=== PATIENT | male | born 1955 | race Caucasian/White ===

== ENCOUNTER 2019-03-06 11:26 | Emergency (ER) | payer OTHER, SELFPAY ==
[2019-03-06 11:25] VITALS: BP 148/77; PULSE 78; RESP 14; TEMP 36.5; O2SAT 94; BMI 32.1
--- NOTE | 2019-03-06 11:32 | ED_ITS ---
HPI - Head Injury General Chief complaint: Fall Stated complaint: GLF Time Seen by Provider: 03/06/19 11:26 Source: patient and EMS Mode of arrival: EMS Limitations: no limitations History of Present Illness HPI Narrative: Patient was brought to the emergency department by EMS after falling backward while pushing a vilma uphill and hitting the back of his head on cement. Patient did not lose consciousness, but was progressively amnestic for the medics. Patient states he is nauseated and has a headache, but denies neck pain. No visual changes. Patient was able to walk after the fall, and medics had to convince him to come to the emergency department. Patient denies any extremity pain. No chest pain or shortness breath. No rib pain. No other complaints at this time. Patient was not ill prior to the fall. Related Data Home Medications Medication Instructions Recorded Confirmed Supplements 1 dose PO DIRECTED 03/06/19 03/06/19 Allergies Allergy/AdvReac Type Severity Reaction Status Date / Time codeine Allergy Verified 03/06/19 11:32 Review of Systems Constitutional Denies chills, Denies fever(s), Denies lethargy and Denies weakness Eyes Denies change in vision, Denies eye discharge, Denies irritation and Denies loss of vision ENT Ears, Nose, Mouth, and Throat: Denies change in voice, Denies neck pain and Denies sore throat Cardiovascular Denies chest pain, Denies irregular heart rhythm, Denies lightheadedness, Denies palpitations, Denies dyspnea, Denies dyspnea on exertion and Denies orthopnea Respiratory Denies cough, Denies dyspnea, Denies dyspnea on exertion and Denies wheezing Gastrointestinal Gastrointestinal: Denies abdominal pain, Denies change in bowel habits, Denies diarrhea, Reports nausea and Denies vomiting Comments: Nausea Genitourinary Denies hematuria, Denies flank pain, Denies urinary incontinence and Denies ur inary urgency Musculoskeletal Denies neck pain Integumentary/Breasts Denies pruritus, Denies erythema, Denies rash and Denies wounds Neurologic Denies confusion, Denies loss of vision and Denies weakness Comments: Headache Psychiatric Denies anxiety, Denies confusion, Denies depression, Denies homicidal ideation and Denies suicidal ideation Endocrine Denies palpitations Hematologic/Lymphatic Denies easy bruising Allergic/Immunologic Denies wheezing [facility] Medical History (Updated 03/06/19 @ 15:45 by Areli Tang MD) Healthy adult (Acute) Surgical History No pertinent past surgical history (Acute) Social History Smoking Status: Current every day smoker Social History Smoking Status: Current every day smoker Exam Initial Vital Signs Initial Vital Signs: Vital Signs Temperature 97.7 F 03/06/19 11:25 Pulse Rate 78 03/06/19 11:25 Respiratory Rate 14 03/06/19 11:25 Blood Pressure 148/77 H 03/06/19 11:25 Pulse Oximetry 94 03/06/19 11:25 Const General: cooperative and well developed Nutritional Appearance: well nourished Orientation: alert, awake, oriented x3 and not confused Other: Patient is alert, but appears moderately uncomfortable. HENMT Head: normocephalic and atraumatic Ears: external ears normal Nose: external nose normal and No nasal discharge Face and sinus: face symmetric and No dry mucous membranes Mouth: oral mucosae normal and moist mucous membranes Teeth and gingiva: dentition normal Eyes General: appearance normal, both eyes and all related structures Eyelids: eyelids normal Conjunctivae: conjunctivae normal Sclera: sclerae normal Pupils: PERRL EOM: EOM intact bilaterally Neck Neck: normal visual inspection, trachea midline, No lymphadenopathy, No midline deformity and No JVD Lymphatic: No lymphedema Chest Chest: normal inspection of the chest Resp Effort & Inspection: normal respiratory effort, able to speak in complete sentences, no respiratory distress and no use of accessory muscles Auscultation: clear to auscultation bilaterally, no rales, no rhonchi and no wheezes Cardio Rate: regular rate Rhythm: regular rhythm Heart Sounds: no click, no gallops, no murmurs and no rubs Pulses: normal peripheral pulses GI Inspection: non-distended Palpation: soft, no hepatosplenomegaly, No guarding, No pulsatile mass and No tender Auscultation: normal bowel sounds Other: Patient is actively retching. Back/Spine/Pelvis Back: No CVA tenderness Cervical Spine: cervical ROM normal and No pain with cervical ROM Thoracic/Lumbar Spine: thoracic and lumbar spine normal to inspection Skin General: no rashes or lesions noted, No jaundice and No petechiae Neuro General: alert, awake, oriented x3, gait normal and no focal motor deficits Speech: speech normal Gait: normal gait Motor: muscle tone normal throughout Sensory Exam: no sensory deficits noted Pupils: Normal pupillary reactivity/response: right and left Other: GCS is 15. Extrem General: full ROM, no clubbing, cyanosis or edema, no pedal edema and no calf tenderness Psych Appearance: well kempt Mental Status: mental status grossly normal Attitude: cooperative Thought Content: normal and suicidality Judgment: judgment good Course Course Narrative: Patient was worked up with a CT scan of the head, which did sh ow bilateral frontal intraparenchymal hemorrhage. I spoke with the neurosurgeon at [facility], who recommended serial CT scans, but did not feel the patient needed to be transferred to her service. I did not feel that this was appropriate, and Dr. Mcmahon, who is on-call for surgery here, stated that there was no way we would be able to admit the patient at our hospital. I then spoke with Dr. Marcelino, the trauma attending at [facility], and she did agree to accept the patient in transfer. The patient remained stable throughout his stay in the emergency department. He had been treated symptomatically for his nausea. Labs were unremarkable. Patient was advised that he would be transferred, and was also advised of the findings on the CT scan, and he was agreeable to the plan. [facility]: [facility] Neurosurgery Prov: Ryland Trauma Surgery Orders Ordered: ED Orders 03/06/19 12:14 Complete Blood Count AUTO DIFF Stat Comprehensive Metabolic Panel Stat Discontinued Medications Ondansetron HCl (Zofran Odt) 4 mg SL NOW ONE Stop: 03/06/19 11:34 Last Admin: 03/06/19 11:34 Dose: 4 mg Ondansetron HCl (Zofran) 4 mg IV NOW ONE Stop: 03/06/19 12:29 Last Admin: 03/06/19 12:41 Dose: 4 mg Vital Signs - 8 hr 03/06/19 12:40 03/06/19 13:41 03/06/19 14:30 Pulse Rate 65 66 67 Respiratory Rate 18 18 15 Blood Pressure [Right Arm] 156/86 H 148/80 H 164/89 H Pulse Oximetry 93 96 97 MDM - Head Injury Medical Records Attestation: I reviewed the patient's medical records. Lab Data Attestation: I reviewed the patient's lab results. Result diagrams: 03/06/19 12:14 03/06/19 12:14 Lab Results 03/06/19 03/06/19 Range/Units 12:14 12:14 WBC 6.8 (4.5-11.0) X10^3/uL RBC 4.79 (4.5-5.9) X10^6/uL Hgb 15.4 (13.5-17.5) g/dL Hct 45.2 (41-53) % MCV 94.5 (80-100) fL MCH 32.2 (26-34) PG MCHC 34.0 (30-36) % RDW 13.1 (11.6-14.8) % Plt Count 183 (150-400) X10^3/uL Neut % (Auto) 70.2 (50-75) % Lymph % (Auto) 20.2 L (25-40) % Schley % (Auto) 7.9 (3-14) % Eos % (Auto) 1.0 L (2-4) % Baso % (Auto) 0.7 (0-2) % Neut # (Auto) 4800 (8800-2711) /uL Lymph # (Auto) 1400 (0077-5000) /uL Schley # (Auto) 500 (0-900) /uL Eos # (Auto) 100 (0-450) /uL Baso # (Auto) 100 (0-100) /uL Sodium 139 (137-145) mmol/L Potassium 3.5 (3.4-5.1) mmol/L Chloride 105 (98-107) mmol/L Carbon Dioxide 25 (22-32) mmol/L BUN 12 (9-20) mg/dL Creatinine 0.80 (0.66-1.25) mg/dL Estimated GFR > 60.0 (>60) mL/min BUN/Creatinine Ratio 15.0 (6-22) Glucose 128 H (80-110) mg/dL Calcium 8.8 (8.4-10.2) mg/dL Total Bilirubin 0.7 (0.2-1.3) mg/dL AST 28 (17-59) IU/L ALT 21 (21-72) IU/L Alkaline Phosphatase 76 (38-126) U/L Total Protein 6.9 (6.3-8.2) g/dL Albumin 4.1 (3.5-5.0) g/dL Globulin 2.8 (1.7-4.1) g/dL Albumin/Globulin Ratio 1.5 (1.0-2.8) Imaging Data CT scan - head: Radiologist's impression: PROCEDURE: CT HEAD/BRAIN WO CON INDICATIONS: head injury TECHNIQUE: Noncontrast 4.5 mm thick angled axial sections acquired from the foramen magnum to the vertex, with coronal and sagittal reformats. For radiation dose reduction, the following was used: automated exposure control, adjustment of mA and/or kV according to patient size. COMPARISON: None. FINDINGS: Image quality: Excellent. Bifrontal mild extra-axial hemorrhage is seen, for example image 13 series 2. This measures up to 4 mm in thickness. There is also right frontal subarachnoid blood. Additional sub-5 mm focus of hemorrhage in the left frontal lobe could be intraparenchymal versus extra-axial for example image 14 series 2. There is anterior left frontal 4 mm acute hemorrhage likely intraparenchymal on image 11 series 3. Basal cisterns appear preserved. No midline shift is identified. No hydrocephalus seen. There is cerebral volume loss for age, with resultant ventricular and sulcal prominence. There are periventricular and deep white matter chronic small vessel ischemic changes. There is intracranial internal carotid artery atherosclerosis. Skull and face: Calvarium and visualized facial bones appear intact, without suspicious lesions. Sinuses: Visualized sinuses and mastoids are clear. IMPRESSION: Bifrontal acute intracranial hemorrhage as detailed above. Critical nature of the findings were personally telephoned and discussed with Dr. Tang in the emergency department at 1207 hours 03/06/19. Dictated by: Hasmukh Gillette M.D. on 03/06/2019 at 12:01 Approved by: Hasmukh Gillette M.D. on 03/06/2019 at 12:08 Discharge Plan Departure Patient Disposition: [facility] Clinical Impression: Subarachnoid hemorrhage, Intraparenchymal hemorrhage of brain Fall Qualifiers: Encounter type: initial encounter Qualified Code(s): W19.XXXA - Unspecified fall, initial encounter Closed head injury Qualifiers: Encounter type: initial encounter Qualified Code(s): S09.90XA - Unspecified injury of head, initial encounter Discharge Date/Time: 03/06/19 15:01 Interventions: ED Discharge Assessment Last Done: 03/06/19 15:01 Prescriptions: No Action Supplements 1 dose PO DIRECTED RF: 0
[2019-03-06] MEDS: ONDANSETRON 4 MG ODT SL (11:34)
[2019-03-06 12:40] VITALS: BP 156/86; PULSE 65; RESP 18; O2SAT 93
[2019-03-06] MEDS: ONDANSETRON 4 MG/2 ML INJ IV (12:41)
[2019-03-06 13:41] VITALS: BP 148/80; PULSE 66; RESP 18; O2SAT 96
[2019-03-06 14:30] VITALS: BP 164/89; PULSE 67; RESP 15; O2SAT 97
[2019-03-06 14:47] LABS: Add Manual Diff / Slide Review NO; Basophils Absolute Auto 100 /uL (0-100); Basophils Percent Auto 0.7 % (0-2); Eosinophils Absolute Auto 100 /uL (0-450); Hematocrit 45.2 % (41-53); Hemoglobin 15.4 g/dL (13.5-17.5); Lymphocytes Absolute Auto 1400 /uL (1100-4500); Lymphocytes Percent Auto 20.2 % (25-40); Mean Corpuscular Hemoglobin 32.2 PG (26-34); Mean Corpuscular Volume 94.5 fL (80-100); Monocytes Absolute Auto 500 /uL (0-900); Monocytes Percent Auto 7.9 % (3-14); Neutrophils Absolute Auto 4800 /uL (1500-7000); Neutrophils Percent Auto 70.2 % (50-75); Platelet Count 183 X10^3/uL (150-400); Red Blood Cell Count 4.79 X10^6/uL (4.5-5.9); Red Cell Distribution Width 13.1 % (11.6-14.8); White Blood Cell Count 6.8 X10^3/uL (4.5-11.0)
[2019-03-06 14:52] LABS: Alanine Aminotransferase 21 IU/L (21-72); Albumin 4.1 g/dL (3.5-5.0); Albumin Globulin Ratio 1.5 (1.0-2.8); Alkaline Phosphatase 76 U/L (38-126); Aspartate Aminotransferase 28 IU/L (17-59); Bilirubin Total 0.7 mg/dL (0.2-1.3); Blood Urea Nitrogen 12 mg/dL (9-20); Calcium 8.8 mg/dL (8.4-10.2); Carbon Dioxide 25 mmol/L (22-32); Chloride 105 mmol/L (98-107); Estimated Glomerular Filt Rate > 60.0 mL/min (>60); Globulin 2.8 g/dL (1.7-4.1); Glucose 128 mg/dL (80-110); HEMOLYSIS < 15 (0-50); Potassium 3.5 mmol/L (3.4-5.1); Sodium 139 mmol/L (137-145); Total Protein 6.9 g/dL (6.3-8.2)
--- NOTE | 2019-03-06 15:01 | PC.NURSE ---
Spoke with , Azul, on phone per patient's request and updated him on patient condition and transfer to [place]. All questions answered.
== END 2019-03-06 15:01 | disposition short-term general hospital (02) ==
PROVIDERS: Emergency Provider Emergency Medicine
DX: I60.9 Nontraumatic subarachnoid hemorrhage, unspecified (principal); I61.9 Nontraumatic intracerebral hemorrhage, unspecified; Y99.0 Civilian activity done for income or pay
CPT/HCPCS: 36591; 70450; 80053; 85025; 96374; 99283; 99284; J2405